=== PATIENT | female | born 1970 | race African-American/Black ===

== ENCOUNTER → 2016-09-22 | Outpatient (CLI) | payer OTHER ==
[~2016-09-22] MED LIST: IBUPROFEN800 MG PO; LORTAB 5/500 TA1 TA1 PO; LORTAB 5/500 TA1 TA2 PO; MOTRIN PO
== END | disposition home or self-care (01) ==
LOC: CBAR 14:01
DX: Z01.812 Encounter for preprocedural laboratory examination (principal); E66.01 Morbid (severe) obesity due to excess calories
CPT/HCPCS: 36415; 84443; 86677; G0463

== ENCOUNTER 2017-01-01 04:56 | Emergency (ER) | payer OTHER | END 2017-01-01 06:32 | disposition home or self-care (01) | LOC: CED 04:56 | DX: M54.12 Radiculopathy, cervical region (principal); I10 Essential (primary) hypertension; Z90.49 Acquired absence of other specified parts of digestive tract; Z90.710 Acquired absence of both cervix and uterus; Z88.0 Allergy status to penicillin | CPT/HCPCS: 99283 ==

== ENCOUNTER 2017-01-27 19:22 | Emergency (ER) | payer OTHER ==
--- NOTE | ~2017-01-27 | EKG ---
PATIENT: TOY ADHIKARI UNIT #: [id number] Ventricular Rate: 71 BPM Atrial Rate: 71 BPM P-R Interval: 166 ms QRS Duration: 84 ms Q-T Interval: 396 ms QTC Calculation(Bezet): 430 ms P Ubly: 34 degrees Calculated R Ubly: 0 degrees Calculated T Ubly: 24 degrees Diagnosis Line: Normal sinus rhythm Diagnosis Line: Normal ECG Diagnosis Line: When compared with ECG of 22-DEC-2015 22:13, Diagnosis Line: No significant change was found Diagnosis Line: Confirmed by KWAKU HORVATH MD ([id number]) on 01/30/2017 Diagnosis Line: 8:08:31 AM INTERPRETING MD: YULIET RECINOS
--- NOTE | ~2017-01-27 | CR72 ---
[facility] A Service of [facility] & [facility] RADIOLOGY TEXT RESULTS PATIENT: TOY ADHIKARI LOCATION: [facility] : 72 UNIT #: [id number] AGE: [address]: Luz Mancera MD SEX: F ORDER DR: [id number] [facility] [address] [place], [place] [address] [id number] E MR#: [id number] Acc #: [id number] NAME: TOY ADHIKARI. : 1970 SEX: F STUDY DATE/TIME: 01/27/2017 21:26 UNIT: [facility] ROOM: STUDY DESCRIPTION: CR Chest Single View Portable Attending Physician: Luz Mancera M.D. Ordering Physician: Luz Mancera M.D. Primary Care Physician: Emile Dowell M.D. MEDICAL IMAGING REPORT This report is preliminary unless electronic signature is present EXAM Portable chest HISTORY Right-side pleuritic chest pain and shortness of air today. No injury. FINDINGS Borderline cardiac enlargement is accentuated by low lung volumes. No airspace infiltrates or pleural effusions. IMPRESSION No acute findings. Dictated by... Luiz Toledo M.D. THIS IS AN ELECTRONICALLY VERIFIED REPORT Luiz Toledo M.D. at 01/28/2017 4:32 PM FELIX/olga TD: 01/27/2017 22:44 JOB #: [id number] MEDICAL IMAGING REPORT Page 1 of 1 COPY
[2017-01-27 19:52] LABS: BASOPHIL# 0.1 X10e3 (0-0.3); BASOPHIL% 0.6 % (0-2.5); EOSINOPHIL# 0.3 X10e3 (0-0.7); EOSINOPHIL% 3.8 % (0.0-7.0); HEMATOCRIT 37.4 % (35.0-45.0); HEMOGLOBIN 11.8 gm/dL (12.0-16.0); LYMPHOCYTE# 2.2 X10e3 (1.0-3.5); LYMPHOCYTE% 25.6 % (17.0-45.0); MEAN CELL VOLUME 81.4 FL (83-96); MEAN CORPUSCULAR HEMOGLOBIN 25.8 PG (28-34); MEAN CORPUSCULAR HGB CONC 31.7 g/dL (30-36); MEAN PLATELET VOLUME 7.6 FL (6.5-11.5); MONOCYTE# 0.7 X10e3 (0-1.0); MONOCYTE% 7.5 % (3.0-12.0); NEUTROPHIL# 5.5 X10e3 (1.5-7.1); NEUTROPHIL% 62.5 % (40-75); PLATELET COUNT 233 X10e3 (140-420); RED BLOOD COUNT 4.59 X10e (3.90-5.30); RED CELL DISTRIBUTION WIDTH 15.8 % (11.0-15.5); WHITE BLOOD COUNT 8.7 X10e3 (4.0-10.5)
[2017-01-27 19:56] LABS: DIFF IND NO
[2017-01-27 20:19] LABS: BUN/CREATININE RATIO 21.42; CALCIUM SERUM 8.9 mg/dL (8.4-10.2); CREATININE SERUM 0.7 mg/dL (0.6-1.4); GLOM FILT RATE Estimated 121.3 mL/min (>60); POTASSIUM 3.9 mmol/L (3.5-5.1)
== END 2017-01-27 22:40 | disposition home or self-care (01) ==
LOC: CED 19:22
PROVIDERS: Emergency Medicine
DX: R07.89 Other chest pain (principal); I10 Essential (primary) hypertension; Z90.49 Acquired absence of other specified parts of digestive tract; Z90.710 Acquired absence of both cervix and uterus; Z88.0 Allergy status to penicillin
CPT/HCPCS: 36415; 71010; 80048; 85025; 93005; 96372; 99285; J1100; J1885